=== PATIENT | female | born 1960 | race Caucasian/White ===

== ENCOUNTER → 2017-12-31 | Outpatient (REF) | payer OTHER ==
[2017-12-31 19:55] LABS: FREE T4 0.92 NG/DL (0.76-1.46); THYROID STIMULATING HORMONE 0.774 uIU/ML (0.358-3.740)
== END ==
LOC: M SFHCCLAY 12:07
DX: I10 Essential (primary) hypertension (principal); R00.0 Tachycardia, unspecified

== ENCOUNTER 2018-11-16 11:08 | Day surgery (SDC) | payer BC, OTHER ==
[~2018-11-16] VITALS: Ht 162.6 cm; Wt 51.4 kg
[~2018-11-16 11:08] MED LIST: CARV6.25 PO; LETR2.5T2 PO; LIDOCAINE 1% MDV 20ML VIAL SQ PRN; LR 1,000 ML IV ONE
[2018-11-16] MEDS ORDERED: LIDOCAINE 1% MDV 20ML VIAL ONE (11:09)
[2018-11-16] MEDS ORDERED: ROPIvacaine 0.5% 30 ML INJECTION (J2795 PER 1MG) ONE (11:09)
[2018-11-16] MEDS ORDERED: dexameTHASONE 10 MG/1 ML VIAL PRES.FREE (J1100) ONE (11:09)
[2018-11-16] MEDS ORDERED: PROPOFOL 200 MG/20 ML VIAL As Ordered ONE (11:16)
[2018-11-16] MEDS ORDERED: LIDOCAINE 2% INJ 100 MG/5 ML SDV (FOR ANES.) As Ordered ONE (11:16)
[2018-11-16] MEDS ORDERED: MIDAZOLAM INJ 2 MG/2 ML VIAL (J2250) As Ordered ONE ×2 (11:17→12:40)
[2018-11-16] MEDS ORDERED: fentaNYL 100 MCG/2 ML INJECTION (J3010) As Ordered ONE ×2 (11:17→12:40)
[2018-11-16] MEDS ORDERED: dexameTHASONE 4 MG/ML 1ML VIAL (J1100) As Ordered ONE (11:17)
[2018-11-16] MEDS ORDERED: ONDANSETRON 4MG/2ML VIAL (J2405) As Ordered ONE (11:17)
[2018-11-16] MEDS ORDERED: PHENYLephrine HCL 500 MCG/5 ML (100MCG/ML) SYRINGE (J2370) As Ordered ONE (13:27)
[2018-11-16] MEDS ORDERED: ePHEDrine SULFATE 25 MG/5 ML(5MG/ML) SYRINGE As Ordered ONE ×2 (13:27→14:03)
[2018-11-16] MEDS ORDERED: fentaNYL 100 MCG/2 ML INJECTION (J3010) IV ONE (13:30)
[2018-11-16] MEDS ORDERED: MIDAZOLAM INJ 2 MG/2 ML VIAL (J2250) IV ONE (13:30)
[2018-11-16] MEDS ORDERED: BUPIVACAINE/EPIN 0.25% 30 ML VIAL As Ordered ONE (13:44)
[2018-11-16] MEDS ORDERED: GLYCOPYRROLATE INJ 0.2 MG/ML 2 ML VIAL As Ordered ONE (14:08)
[2018-11-16] MEDS ORDERED: HYDROMORPHONE HCL 0.5 MG/ 0.5 ML SYRINGE (J1170 PER 1) IV PRN (15:15)
[2018-11-16] MEDS ORDERED: LR 1,000 ML IV SCH (15:15)
[2018-11-16] MEDS ORDERED: fentaNYL 100 MCG/2 ML INJECTION (J3010) IV PRN (15:15)
[2018-11-16] MEDS ORDERED: oxyCODONE 5MG TAB PO PRN ×3 (15:15→16:16)
--- NOTE | 2018-11-16 16:07 | REP ---
C-ARM VIEWS, RIGHT WRIST: Multiple C-ARM views of the right wrist were performed during placement of metallic plate and multiple screws in the distal radius for a fracture at that location. The structures are well aligned. 56.8 seconds of fluoroscopy time was utilized. Electronically Signed by Jony Mcdermott MD 11/17/2018 10:28 A
[2018-11-16] MEDS ORDERED: MORPHINE 4 MG/ML 1ML VIAL/SYRINGE (J2270) IV PRN (16:16)
[2018-11-16 16:20] VITALS: BP 104/54
--- NOTE | 2018-11-17 10:17 | ECGEPIP ---
[facility] Test Date: 2018-11-16 Pat Name: BRITTNI FLEMING Department: Room: - Gender: Female [employer] Teacher: [place] : 1960 Requested By: RANDY Barber Order Number: [id number] Reading MD: Talib Chavarria Measurements Intervals [place] Rate: 68 P: 73 WY: 137 QRS: 73 QRSD: 84 T: 55 QT: 409 QTc: 435 Interpretive Statements SINUS RHYTHM Comparison tracing not on file Electronically Signed on 11-17-2018 10:17:04 EDT by Talib Chavarria
--- NOTE | 2018-11-18 19:51 | RO ---
DATE OF PROCEDURE: 11/16/2018 PREOPERATIVE DIAGNOSIS: Right distal radius fracture, intra-articular. POSTOPERATIVE DIAGNOSIS: Right distal radius fracture, intra-articular. PROCEDURE: SURGEON: Marek Macdonald MD BODY COVERER: EMILIA Peralta No other qualified individual available, and she was intricate to retracting for the surgery. ANESTHESIA: TOURNIQUET TIME: 59 minutes. ANTIBIOTICS: 2 grams of Ancef. COMPLICATIONS: None. OPERATIVE INDICATIONS: This is a pleasant 58-year-old female who is extremely active and has a displaced intra-articular fracture that was outside range of motion. Therefore, we decided to proceed with operative intervention. Consent was obtained. Discussion of risks and benefits, including, but not limited to, infection, malunion, nonunion. They understood and accepted this. ESTIMATED BLOOD LOSS: Minimal. COMPLICATIONS: None. PROCEDURE DESCRIPTION: The patient was brought back to the operating room (OR) and laid supine on the operative table. Underwent general anesthesia, at which point we prepped and draped the right arm in the usual fashion. Time-out was had. At this point, we raised the tourniquet to 250 mmHg. We then proceeded with an anterior volar incision along the flexor carpi radialis (FCR) following the modified Randy approach, retracted FCR out of the way, and incised the deep part of the sheath. Exposing flexor digitorum longus (FDL), we retracted this ulnarly. Exposing the pronator quadratus, we lifted this off the distal radius. We then released brachialis from the distal radius. We encountered the fracture site with significant callus. Callus had to be debrided in order to mobilize the fracture. We then did a number of indirect reduction techniques to restore radial tilt and height. Once we demonstrated accurate reduction on mini C-Arm, we then proceeded with inserting the five-hole [employer] Variable Angle distal radius plate to the distal radius. Once this was complete, we then confirmed no screws were in the joint with using mini C-Arm and then secured it to the shaft with cortical screws proximally. We were very happy with this reduction, at which point that was confirmed on mini C-Arm. We irrigated and closed the wound with #3-0 Vicryl and nylon. We placed her in a volar splint, and she was extubated and taken stably to the postanesthesia care unit (PACU). POSTOPERATIVE PLAN: She will be nonweightbearing right upper extremity. We will see her in 2 weeks for a clinical check. We discharged the patient on 1 week of Keflex due to the patient's facial swelling from her cut that she suffered during the same fall to help with that infection as well. Otherwise, we will see her in 2 weeks and remove the splint, check on the incision, remove sutures, and give her a removable brace at that time.
== END 2018-11-16 16:38 | disposition home or self-care (01) ==
LOC: M SDC 11:08
PROVIDERS: ATTEND Orthopaedic Surgery Hand Surgery
DX: S52.571A Other intraarticular fracture of lower end of right radius, initial encounter for closed fracture (principal); X58.XXXA Exposure to other specified factors, initial encounter; Y92.89 Other specified places as the place of occurrence of the external cause; Y93.9 Activity, unspecified; Y99.9 Unspecified external cause status; E78.00 Pure hypercholesterolemia, unspecified; I10 Essential (primary) hypertension; F17.210 Nicotine dependence, cigarettes, uncomplicated; Z85.3 Personal history of malignant neoplasm of breast; Z92.21 Personal history of antineoplastic chemotherapy; Z79.899 Other long term (current) drug therapy
CPT/HCPCS: 25608; 76000; 93005; C1713; J0690; J1100; J2250; J2370; J2405; J2795; J3010

== ENCOUNTER → 2021-03-07 | Outpatient (REF) | payer OTHER ==
[~2021-03-07] MED LIST changes: -LIDOCAINE 1% MDV 20ML VIAL SQ PRN; -LR 1,000 ML IV ONE
[2021-03-07 15:57] LABS: CHOLESTEROL RISK RATIO 2.28 (<5)
== END ==
LOC: M SFHCCLAY 09:21
PROVIDERS: ATTEND Family Medicine
DX: E78.00 Pure hypercholesterolemia, unspecified (principal)

== ENCOUNTER → 2022-03-06 | Outpatient (CLI) | payer BC, OTHER | LOC: M PLAIMG 14:30 | PROVIDERS: ATTEND Family Medicine | DX: R53.1 Weakness (principal) ==

== ENCOUNTER → 2022-08-20 | Outpatient (CLI) | payer BC, OTHER | LOC: M PLARAD 13:02 | PROVIDERS: ATTEND Physician Assistant Medical | DX: M54.16 Radiculopathy, lumbar region (principal) ==

== ENCOUNTER → 2022-12-19 | Outpatient (REF) | payer BC, OTHER ==
[2022-12-19 17:33] LABS: BASO # 0.1 10^3/uL (0.0-0.2); BASO % 0.8 % (0.0-1.0); EOS # 0.1 10^3/uL (0.0-0.5); EOS % 0.8 % (0.0-3.0); HEMATOCRIT 38.2 % (36.0-47.0); HEMOGLOBIN 13.3 g/dl (12.0-15.5); LYMPH # 1.4 10^3/uL (1.5-5.0); LYMPH % 20.6 % (24.0-44.0); MEAN CORPUSCULAR HEMOGLOBIN 36.2 pg (27.0-33.0); MEAN CORPUSCULAR HGB CONC 34.8 g/dl (32.0-36.5); MEAN CORPUSCULAR VOLUME 104.1 fl (80.0-96.0); MONO # 0.6 10^3/uL (0.0-0.8); NEUTROPHILS # 4.5 10^3/uL (1.5-8.5); NEUTROPHILS % 68.6 % (36.0-66.0); RED BLOOD COUNT 3.67 10^6/uL (4.00-5.40); WHITE BLOOD COUNT 6.6 10^3/uL (4.0-10.0)
[2022-12-19 19:30] LABS: ERYTHROCYTE SEDIMENTATION RATE 3 mm/hr (0-30)
[2022-12-24 07:43] LABS: BLOOD UREA NITROGEN 8 MG/DL (8-27); CREATININE FOR GFR 0.68 MG/DL (0.57-1.00); GLOMERULAR FILTRATION RATE > 60.0 (>59)
[2022-12-24 07:44] LABS: ALBUMIN 3.7 G/DL (3.9-4.9); ALKALINE PHOSPHATASE 111 IU/L (44-121); ALT/SGPT 55 IU/L (0-32); AST/SGOT 43 IU/L (0-40); BILIRUBIN,TOTAL 0.4 MG/DL (0.0-1.2); CALCIUM LEVEL 9.2 MG/DL (8.7-10.3); CARBON DIOXIDE LEVEL 22 mmol/L (20-29); CHLORIDE LEVEL 103 mmol/L (96-106); CHOLESTEROL LEVEL 158 MG/DL (100-199); HDL CHOLESTEROL 61 MG/DL (>39); LDL CHOLESTEROL 79.2 MG/DL (<100); MAGNESIUM LEVEL 1.8 MG/DL (1.6-2.3); NON-HDL-C 97 MG/DL; POTASSIUM SERUM 4.1 mmol/L (3.5-5.2); SODIUM LEVEL 139 mmol/L (134-144); TOTAL PROTEIN 6.2 G/DL (6.0-8.5); TRIGLYCERIDES LEVEL 89 MG/DL (0-149)
[2022-12-24 07:45] LABS: GLUCOSE, FASTING 175 MG/DL (70-99)
== END ==
LOC: M SFHCCLAY 07:19
PROVIDERS: ATTEND Family Medicine
DX: I10 Essential (primary) hypertension (principal); K52.9 Noninfective gastroenteritis and colitis, unspecified

== ENCOUNTER → 2023-07-07 | Outpatient (REF) | payer BC | LOC: M SFHCCLAY 14:39 | PROVIDERS: ATTEND Family Medicine | DX: G62.9 Polyneuropathy, unspecified (principal); E87.6 Hypokalemia; E83.42 Hypomagnesemia; I10 Essential (primary) hypertension ==

== ENCOUNTER → 2023-07-31 | Outpatient (CLI) | payer BC | LOC: M RAD 11:59 | PROVIDERS: ATTEND Family Medicine | DX: S06.360D Traumatic hemorrhage of cerebrum, unspecified, without loss of consciousness, subsequent encounter (principal); Z53.9 Procedure and treatment not carried out, unspecified reason ==

== ENCOUNTER → 2023-08-08 | Outpatient (CLI) | payer BC | LOC: M RAD 12:49 | PROVIDERS: ATTEND Family Medicine | DX: M51.36 Other intervertebral disc degeneration, lumbar region (principal); G62.9 Polyneuropathy, unspecified ==

== ENCOUNTER → 2023-08-24 | Outpatient (CLI) | payer BC ==
[~2023-08-24] MED LIST changes: +ISOVUE-370 76% 100ML VIAL ONE
== END ==
LOC: M PLAIMG 12:26
PROVIDERS: ATTEND Family Medicine
DX: N13.30 Unspecified hydronephrosis (principal)

== ENCOUNTER → 2023-09-25 | Outpatient (REF) | payer BC, OTHER ==
[~2023-09-25] MED LIST changes: -ISOVUE-370 76% 100ML VIAL ONE
[2023-09-25 18:39] LABS: APPEARANCE, URINE HAZY (CLEAR); BACTERIA, URINE AUTO 1+ (NEGATIVE); BILIRUBIN, URINE AUTO NEGATIVE (NEGATIVE); BLOOD, URINE BLOOD 3+ (NEGATIVE); COLOR, URINE YELLOW (YELLOW); GLUCOSE, URINE (UA) AUTO NEGATIVE (NEGATIVE); KETONE, URINE AUTO NEGATIVE (NEGATIVE); LEUKOCYTE ESTERASE, URINE AUTO 3+ (NEGATIVE); MUCUS, URINE SMALL (NEGATIVE); NITRITE, URINE AUTO NEGATIVE (NEGATIVE); PROTEIN, URINE AUTO NEGATIVE (NEGATIVE); RBC, URINE AUTO 2 /HPF (0-3); SPECIFIC GRAVITY URINE AUTO 1.005 (1.002-1.035); SQUAMOUS EPITHELIAL CELL UR AU 11 /HPF (0-6); UROBILINOGEN, URINE AUTO 0.2 mg/dL (0.0-2.0); WBC, URINE AUTO 34 /HPF (0-3)
== END ==
LOC: M SMT 16:50
PROVIDERS: ATTEND Urology
DX: N13.30 Unspecified hydronephrosis (principal)

== ENCOUNTER → 2023-10-13 | Outpatient (CLI) | payer BC ==
[~2023-10-13] MED LIST changes: +ISOVUE-370 76% 100ML VIAL As Ordered ONE
== END ==
LOC: M RAD 15:27
PROVIDERS: ATTEND Urology
DX: N13.30 Unspecified hydronephrosis (principal)
CPT/HCPCS: 74178; Q9967

== ENCOUNTER → 2023-10-23 | Outpatient (REF) | payer BC ==
[~2023-10-23] MED LIST changes: -ISOVUE-370 76% 100ML VIAL As Ordered ONE
[2023-10-23 12:52] LABS: APPEARANCE, URINE HAZY (CLEAR); BACTERIA, URINE AUTO 1+ (NEGATIVE); BILIRUBIN, URINE AUTO NEGATIVE (NEGATIVE); BLOOD, URINE BLOOD 1+ (NEGATIVE); COLOR, URINE YELLOW (YELLOW); GLUCOSE, URINE (UA) AUTO NEGATIVE (NEGATIVE); KETONE, URINE AUTO NEGATIVE (NEGATIVE); LEUKOCYTE ESTERASE, URINE AUTO NEGATIVE (NEGATIVE); MUCUS, URINE SMALL (NEGATIVE); NITRITE, URINE AUTO NEGATIVE (NEGATIVE); PROTEIN, URINE AUTO NEGATIVE (NEGATIVE); RBC, URINE AUTO 2 /HPF (0-3); SPECIFIC GRAVITY URINE AUTO 1.012 (1.002-1.035); SQUAMOUS EPITHELIAL CELL UR AU 3 /HPF (0-6); UROBILINOGEN, URINE AUTO 0.2 mg/dL (0.0-2.0); WBC, URINE AUTO 6 /HPF (0-3)
== END ==
LOC: M LABSMT 09:48
PROVIDERS: ATTEND Urology
DX: N13.30 Unspecified hydronephrosis (principal)

== ENCOUNTER → 2023-11-19 | Outpatient (REF) | payer BC | LOC: M SFHCCLAY 06:35 | PROVIDERS: ATTEND Family Medicine | DX: I10 Essential (primary) hypertension (principal); E78.00 Pure hypercholesterolemia, unspecified; I65.23 Occlusion and stenosis of bilateral carotid arteries; D50.0 Iron deficiency anemia secondary to blood loss (chronic) ==

== ENCOUNTER 2023-12-03 11:02 | Day surgery (SDC) | payer BC ==
[~2023-12-03] VITALS: Ht 167.6 cm; Wt 46.2 kg
[~2023-12-03 11:02] MED LIST changes: +ASPI-226 PO; +CLOP75TA2 PO; +FOLI1TAB11 PO
[2023-12-03] MEDS ORDERED: LR 1,000 ML IV SCH (11:25)
[2023-12-03] MEDS ORDERED: propofoL 200 MG/20 ML VIAL As Ordered ONE (12:46)
[2023-12-03] MEDS ORDERED: MIDAZOLAM INJ 2MG/2ML VIAL As Ordered ONE (12:46)
[2023-12-03] MEDS ORDERED: LIDOCAINE 2% 100MG/5ML SDV (FOR ANES.) As Ordered ONE (12:46)
[2023-12-03] MEDS ORDERED: ONDANSETRON 4MG 2ML VIAL As Ordered ONE (12:46)
[2023-12-03] MEDS ORDERED: fentaNYL 100 MCG/2 ML INJECTION As Ordered ONE (12:47)
[2023-12-03] MEDS: ceFAZolin SOD 2 GM in IV 1 EA IV ONE (13:05)
[2023-12-03] MEDS ORDERED: ePHEDrine SULFATE 25 MG/5 ML(5MG/ML) SYRINGE As Ordered ONE (13:24)
[2023-12-03] MEDS: ISOVUE-300 61% 100ML VIAL As Ordered ONE (13:35)
[2023-12-03] MEDS ORDERED: fentaNYL 100 MCG/2 ML INJECTION IV PRN (13:45)
[2023-12-03] MEDS ORDERED: ONDANSETRON 4MG 2ML VIAL IV PRN (13:45)
[2023-12-03] MEDS ORDERED: oxyCODONE 5MG TAB PO PRN (13:45)
[2023-12-03] MEDS ORDERED: OXYB5TAB14 PO (13:54)
[2023-12-03] MEDS ORDERED: MACR100C43 PO (13:54)
[2023-12-03] MEDS ORDERED: PYRI1TAB5 PO (13:54)
[2023-12-03 14:59] VITALS: BP 132/68; TEMP 97.4; O2SAT 100
== END 2023-12-03 15:25 | disposition home or self-care (01) ==
LOC: M SDC 11:02
PROVIDERS: ATTEND Urology
DX: N20.1 Calculus of ureter (principal); I10 Essential (primary) hypertension; Z85.3 Personal history of malignant neoplasm of breast; Z92.21 Personal history of antineoplastic chemotherapy; Z79.02 Long term (current) use of antithrombotics/antiplatelets; Z79.899 Other long term (current) drug therapy; F12.10 Cannabis abuse, uncomplicated
CPT/HCPCS: 52204; 52332; 76000; 88305; C1769; C1894; C2617; J0690; J1100; J2250; J2405; J3010; Q9967

== ENCOUNTER 2024-02-10 06:47 | Day surgery (SDC) | payer BC ==
[~2024-02-10] VITALS: Ht 170.2 cm; Wt 49.7 kg
[~2024-02-10 06:47] MED LIST changes: +ASPI81TA26 PO; +CALC600T60 PO; +CLOP75TA99 PO; +CYAN500T14 PO; +MACR100C43 PO; +MAGN64TASA PO; +OXYB5TAB14 PO; +PYRI1TAB5 PO; +THERTAB52 PO; +VITA50TA43 PO
[2024-02-10] MEDS ORDERED: PHENYLephrine 500MCG 5ML (100MCG/ML) SYRINGE As Ordered ONE (07:47)
[2024-02-10] MEDS ORDERED: propofoL 200 MG/20 ML VIAL As Ordered ONE (07:47)
[2024-02-10] MEDS ORDERED: LIDOCAINE 2% 100MG/5ML SDV (FOR ANES.) As Ordered ONE (07:47)
[2024-02-10] MEDS ORDERED: NS 500 ML IV ONE (09:10)
[2024-02-10 09:15] VITALS: BP 114/55; O2SAT 97
== END 2024-02-10 09:58 | disposition home or self-care (01) ==
LOC: M OPP 06:47
PROVIDERS: ATTEND Surgery
DX: K64.8 Other hemorrhoids (principal); D12.3 Benign neoplasm of transverse colon; K57.32 Diverticulitis of large intestine without perforation or abscess without bleeding; D12.5 Benign neoplasm of sigmoid colon; R93.3 Abnormal findings on diagnostic imaging of other parts of digestive tract; Z88.2 Allergy status to sulfonamides; Z79.82 Long term (current) use of aspirin; I10 Essential (primary) hypertension; Z85.3 Personal history of malignant neoplasm of breast; Z92.21 Personal history of antineoplastic chemotherapy
CPT/HCPCS: 45385; 88305; J2371

== ENCOUNTER → 2024-08-25 | Outpatient (CLI) | payer MEDICARE, BC ==
[~2024-08-25] MED LIST changes: +BD P0.9I2 IB; +CEFD1CAP9 PO; +CIPR500T39 PO; +FLUC10TA PO; +METR-265 PO; +NEOSPORIN OINT 0.9 GM PKT As Ordered ONE; +PHEN1TAB73 PO; +SODIUM CHLORIDE 0.9% 1000 ML XX SCH
[2024-08-25 13:49] VITALS: TEMP 98.2
[2024-08-25] MEDS: ISOVUE-300 61% 100 ML VIAL IV SCH (15:42)
[2024-08-25] MEDS: LIDOCAINE 1% MDV 20 ML VIAL SC SCH (15:42)
[2024-08-25 16:08] VITALS: BP 166/72; O2SAT 100
== END ==
LOC: M IRPRO 11:22
PROVIDERS: ATTEND Radiology Diagnostic Radiology
DX: K65.1 Peritoneal abscess (principal)
CPT/HCPCS: 49423; 75984; C1729; Q9967

== ENCOUNTER → 2024-12-08 | Outpatient (REF) | payer MEDICARE, BC ==
[~2024-12-08] MED LIST changes: -NEOSPORIN OINT 0.9 GM PKT As Ordered ONE; -SODIUM CHLORIDE 0.9% 1000 ML XX SCH
== END ==
LOC: M SFHCCLAY 11:12
PROVIDERS: ATTEND Nurse Practitioner Family
DX: Z53.9 Procedure and treatment not carried out, unspecified reason (principal)